=== PATIENT | female | born 1960 | race Caucasian/White ===

== ENCOUNTER 2017-08-10 13:05 | Day surgery (SDC) | payer BC ==
[2017-08-10] MEDS ORDERED: LIDOCAINE 2% (SDV) 5 ML INJ (14:04)
[2017-08-10] MEDS ORDERED: PROPOFOL 40 ML (14:04)
[2017-08-10] MEDS ORDERED: MIDAZOLAM 1 MG/ML 2 ML INJ (14:04)
== END 2017-08-10 15:36 | disposition home or self-care (01) ==
LOC: GIL 13:05
DX: Z12.11 Encounter for screening for malignant neoplasm of colon (principal); K29.30 Chronic superficial gastritis without bleeding; K21.0 Gastro-esophageal reflux disease with esophagitis; K57.90 Diverticulosis of intestine, part unspecified, without perforation or abscess without bleeding; K44.9 Diaphragmatic hernia without obstruction or gangrene; I10 Essential (primary) hypertension
CPT/HCPCS: 43239; 88305; 88312; 88313

== ENCOUNTER 2018-10-19 15:13 | Day surgery (SDC) | payer OTHER, BC ==
[2018-10-19] MEDS ORDERED: PROPOFOL 40 ML (17:59)
[2018-10-19] MEDS ORDERED: LIDOCAINE 2% (SDV) 5 ML INJ (17:59)
== END 2018-10-19 19:15 | disposition home or self-care (01) ==
LOC: GIL 15:13
DX: K29.30 Chronic superficial gastritis without bleeding (principal); K20.9 Esophagitis, unspecified; I10 Essential (primary) hypertension; K59.09 Other constipation
CPT/HCPCS: 43239; 88305; 88312; 88313